=== PATIENT | male | born 1955 | race Caucasian/White ===

== ENCOUNTER 2017-11-16 09:56 | Inpatient (IN) | payer OTHER ==
[~2017-11-16] VITALS: Ht 177.8 cm; Wt 114.0 kg
[~2017-11-16 09:56] MED LIST: ASPIRIN81 M2 PO; CENTRUM SILVER1 EAC3 PO; CLONIDINE HCL0.1 MG PO; COUMADIN5 MG PO; COUMADIN7.5 MG PO; IRON325 MG PO; K-DUR10 MEQ PO; KLOR-CON 1010 ME1 PO; MEDROL DOSEPAK4 MG PO; METOPROLOL SUCC50 MG PO; MICROZIDE12.5 M1 PO; OMEPRAZOLE20 M2 PO; OXYCODONE HCL10 MG PO; OXYCONTIN30 MG PO; PERCOCET 5/31 TABLET PO; PLAVIX75 MG PO; SIMVASTATIN20 MG PO; SKELAXIN800 MG PO; TRAZODONE HCL50 MG PO; VALIUM10 MG PO; ZOCOR20 MG PO; ZOFRAN ODT4 MG PO
[2017-11-16 10:29] LABS: HEMATOCRIT 41.1 % (38.0-50.0); MCH 29.2 PG (29.0-34.0); MCHC 31.6 G/DL (30.0-36.0); MCV 92.4 FL (86-99); PLATELET COUNT 205 K/uL (156-360); RBC DIS.WIDTH-CV 16.9 % (11.8-14.6); RBC DIS.WIDTH-SD 56.9 % (39-53); RED BLOOD COUNT 4.45 M/uL (4.00-5.50); WHITE BLOOD COUNT 8.4 K/uL (4.1-10.2)
[2017-11-16 10:34] LABS: INTER. NORMALIZED RATIO 1.3
[2017-11-16 10:36] LABS: PTT 29.2 SEC (25-37)
[2017-11-16 10:40] LABS: CHLORIDE 103 mEq/L (99-109); POTASSIUM 3.5 mEq/L (3.7-5.4); SODIUM 139 mEq/L (136-147)
[2017-11-16 10:42] LABS: GLUCOSE 136 mg/dL (70-99)
[2017-11-16 10:46] LABS: CREATININE 1.7 mg/dL (0.6-1.3); GFR ESTIMATE (CALCULATED) 44 mL/min/ (58.99-99999)
[2017-11-16 10:47] LABS: UREA NITROGEN (BUN) 20 mg/dL (9-23)
[2017-11-16 10:50] LABS: TROP-I INTERPRETATION NEGATIVE; TROPONIN-I 0.09 ng/mL (0.0-0.30)
[2017-11-16] MEDS ORDERED: DULOXETINE HCL30 MG PO (13:11)
[2017-11-16] MEDS ORDERED: ADVIL,NUPRIN,M200 MG PO (13:14)
[2017-11-16 14:45] VITALS: BP 156/101
[2017-11-16 15:26] LABS: THYROTROPIN (TSH) 3.6 MIU/L (0.4-5.5)
[2017-11-16 16:52] LABS: TROP-I INTERPRETATION NEGATIVE; TROPONIN-I 0.09 ng/mL (0.0-0.30)
[2017-11-16 19:15] VITALS: BP 118/68
[2017-11-16 22:08] LABS: TROP-I INTERPRETATION NEGATIVE; TROPONIN-I 0.08 ng/mL (0.0-0.30)
[2017-11-17 00:10] VITALS: BP 122/85
[2017-11-17 03:23] VITALS: BP 122/74
[2017-11-17 06:31] LABS: HEMATOCRIT 41.7 % (38.0-50.0); HEMOGLOBIN 13.1 G/DL (12.5-16.6); MCH 29.5 PG (29.0-34.0); MCHC 31.4 G/DL (30.0-36.0); MCV 93.9 FL (86-99); PLATELET COUNT 202 K/uL (156-360); RBC DIS.WIDTH-SD 57.6 % (39-53); RED BLOOD COUNT 4.44 M/uL (4.00-5.50); WHITE BLOOD COUNT 5.9 K/uL (4.1-10.2)
[2017-11-17 07:10] VITALS: BP 121/98
[2017-11-17 12:00] VITALS: BP 118/85
[2017-11-17 14:02] LABS: CHLORIDE 99 MEQ/L (99-109); CREATININE 2.1 MG/DL (0.6-1.3); GFR ESTIMATE (CALCULATED) 34 mL/min/ (58.99-99999); SODIUM 133 MEQ/L (136-147); UREA NITROGEN (BUN) 29 mg/dL (9-23)
[2017-11-17 14:07] LABS: GLUCOSE 227 mg/dL (70-99); POTASSIUM 4.5 MEQ/L (3.7-5.4)
[2017-11-17 15:26] VITALS: BP 133/95
[2017-11-17 19:10] VITALS: BP 145/110
[2017-11-18] VITALS (12 sets, daily range): BP systolic 123–146; BP diastolic 66–106
[2017-11-18 05:37] LABS: BASOPHIL (%) 0.1 % (0-1); EOSINOPHIL (%) 0 % (0-5); HEMATOCRIT 40.1 % (38.0-50.0); HEMOGLOBIN 12.5 G/DL (12.5-16.6); IMMATURE GRANULOCYTE (%) 0.5 % (0.0-0.7); LYMPHOCYTE (%) 5.5 % (15-42); LYMPHOCYTE COUNT 0.8 K/uL (1.0-2.8); MCH 29.3 PG (29.0-34.0); MCHC 31.2 G/DL (30.0-36.0); MCV 94.1 FL (86-99); MONOCYTE (%) 5.4 % (3-12); MONOCYTE COUNT 0.8 K/uL (0-0.8); NEUTROPHIL (%) 88.5 % (45-76); PLATELET COUNT 244 K/uL (156-360); RED BLOOD COUNT 4.26 M/uL (4.00-5.50); WHITE BLOOD COUNT 14.7 K/uL (4.1-10.2)
[2017-11-18 05:58] LABS: CHLORIDE 98 MEQ/L (99-109); CREATININE 2.3 MG/DL (0.6-1.3); GFR ESTIMATE (CALCULATED) 31 mL/min/ (58.99-99999); GLUCOSE 176 mg/dL (70-99); POTASSIUM 5.3 MEQ/L (3.7-5.4); SODIUM 133 MEQ/L (136-147); UREA NITROGEN (BUN) 39 mg/dL (9-23)
[2017-11-18 08:38] LABS: ALKALINE PHOSPHATASE 156 IU/L (3-129); ALT (GPT) 28 IU/L (3-49); AST (GOT) 35 IU/L (2-34); DIRECT BILIRUBIN 0.4 mg/dL (0.0-0.3); TOTAL BILIRUBIN 0.9 MG/DL (0.0-1.0)
[2017-11-18 08:48] LABS: HDL CHOLESTEROL 23 MG/DL (Desirable>=40); LDL CHOLESTEROL 88 mg/dL (Desirable<100); NON-HDL CHOLESTEROL 114 mg/dL (Desirable<160); TOTAL CHOLESTEROL 137 mg/dL (Desirable<200); TRIGLYCERIDES 131 MG/DL (Normal: <150)
[2017-11-18 21:17] LABS: CARBON DIOXIDE (BICARBONATE) 30.3 MEQ/L (20-31)
[2017-11-18 21:51] LABS: BASE EXCESS -1.8 mEq/L (-3 to +3); BICARBONATE 23.7 mEq/L (22-26); CARBOXY HGB 2.5 % (0-5); COMMENTS - BLOOD GASES A+C+; FI02 21 %; METHEMOGLOBIN 1.3 % (0-1.5); PCO2 42 mm Hg (35-45); PO2 79 mm Hg (80-100); SITE RR; pH 7.36 (7.35-7.45)
[2017-11-19] VITALS (13 sets, daily range): BP systolic 0–190; BP diastolic 0–139
[2017-11-19 02:40] LABS: BASOPHIL (%) 0.1 % (0-1); EOSINOPHIL (%) 0 % (0-5); HEMATOCRIT 42.8 % (38.0-50.0); HEMOGLOBIN 13.3 G/DL (12.5-16.6); IMMATURE GRANULOCYTE (%) 0.4 % (0.0-0.7); LYMPHOCYTE (%) 7.1 % (15-42); LYMPHOCYTE COUNT 0.9 K/uL (1.0-2.8); MCH 29.2 PG (29.0-34.0); MCHC 31.1 G/DL (30.0-36.0); MCV 94.1 FL (86-99); MONOCYTE COUNT 0.8 K/uL (0-0.8); NEUTROPHIL (%) 86.4 % (45-76); NEUTROPHIL COUNT 11.1 K/uL (1.8-6.4); PLATELET COUNT 275 K/uL (156-360); RBC DIS.WIDTH-CV 16.8 % (11.8-14.6); RBC DIS.WIDTH-SD 57.7 % (39-53); RED BLOOD COUNT 4.55 M/uL (4.00-5.50); WHITE BLOOD COUNT 12.9 K/uL (4.1-10.2)
[2017-11-19 02:55] LABS: ALBUMIN 4.2 g/dL (3.2-4.8)
[2017-11-19 02:56] LABS: CHLORIDE 95 mEq/L (99-109); POTASSIUM 5.4 mEq/L (3.7-5.4); SODIUM 130 mEq/L (136-147)
[2017-11-19 02:58] LABS: GLUCOSE 171 mg/dL (70-99); TOTAL PROTEIN 7.7 g/dL (6.4-8.3)
[2017-11-19 03:01] LABS: ALKALINE PHOSPHATASE 172 IU/L (3-129)
[2017-11-19 03:02] LABS: CREATININE 2.6 mg/dL (0.6-1.3); GFR ESTIMATE (CALCULATED) 27 mL/min/ (58.99-99999)
[2017-11-19 03:03] LABS: AST (GOT) 35 IU/L (2-34); UREA NITROGEN (BUN) 47 mg/dL (9-23)
[2017-11-19 03:05] LABS: ALT (GPT) 33 IU/L (3-49)
[2017-11-19 07:11] LABS: APPEARANCE SL.HAZY ((CLEAR)); BILIRUBIN NEGATIVE; BLOOD NEGATIVE; COLOR YELLOW ((YELLOW)); GLUCOSE (STRIP) NEGATIVE; KETONES NEGATIVE; LEUKOCYTES NEGATIVE; NITRITE NEGATIVE; PROTEIN (STRIP) 30; SPECIFIC GRAVITY 1.019 (1.000-1.030)
[2017-11-19 07:22] LABS: BACTERIA RARE /HPF; EPITHELIAL CELLS RARE /HPF; HYALINE CASTS TNTC /LPF; MUCUS TRACE /LPF; RED BLOOD CELLS 0-5 /HPF (0-5); UCUL ADDED? NO; WHITE BLOOD CELLS 0-5 /HPF (0-5)
[2017-11-19 17:30] LABS: BASE EXCESS -2.6 mEq/L (-3 to +3); CARBOXY HGB 2.5 % (0-5); PO2 89 mm Hg (80-100)
[2017-11-19 17:31] LABS: PCO2 69 mm Hg (35-45); SITE RR +A
[2017-11-19 17:32] LABS: COMMENTS - BLOOD GASES +C; DEVICE NC; O2 FLOW 2 L/MIN; TOTAL RESP RATE 18 resp/min
[2017-11-19 18:18] LABS: HEMATOCRIT 41.1 % (38.0-50.0); HEMOGLOBIN 12.7 G/DL (12.5-16.6); MCH 28.9 PG (29.0-34.0); MCHC 30.9 G/DL (30.0-36.0); MCV 93.6 FL (86-99); NRBC (%) 0.1 /100 WBC (0-0); PLATELET COUNT 275 K/uL (156-360); RBC DIS.WIDTH-CV 16.5 % (11.8-14.6); RBC DIS.WIDTH-SD 57.1 % (39-53); RED BLOOD COUNT 4.39 M/uL (4.00-5.50); WHITE BLOOD COUNT 13.4 K/uL (4.1-10.2)
[2017-11-19 18:33] LABS: TROP-I INTERPRETATION NEGATIVE; TROPONIN-I 0.06 ng/mL (0.0-0.30)
[2017-11-19 18:46] LABS: CHLORIDE 94 MEQ/L (99-109); POTASSIUM 5.1 MEQ/L (3.7-5.4); SODIUM 129 MEQ/L (136-147)
[2017-11-19 18:51] LABS: CREATININE 2.3 MG/DL (0.6-1.3); GFR ESTIMATE (CALCULATED) 31 mL/min/ (58.99-99999); GLUCOSE 200 mg/dL (70-99); UREA NITROGEN (BUN) 55 mg/dL (9-23)
[2017-11-19 20:00] LABS: BASE EXCESS -0.4 mEq/L (-3 to +3); BICARBONATE 25.4 mEq/L (22-26); CARBOXY HGB 2.3 % (0-5); METHEMOGLOBIN 1.4 % (0-1.5); PO2 96 mm Hg (80-100)
[2017-11-19 20:01] LABS: COMMENTS - BLOOD GASES C+; DEVICE BIPAP 14/10; O2 FLOW 2 L/MIN; PCO2 45 mm Hg (35-45); SITE RR; TOTAL RESP RATE 12 resp/min; pH 7.36 (7.35-7.45)
[2017-11-20] VITALS (26 sets, daily range): BP systolic 0–191; BP diastolic 0–139
[2017-11-20 01:08] LABS: TROP-I INTERPRETATION NEGATIVE; TROPONIN-I 0.06 ng/mL (0.0-0.30)
[2017-11-20 04:56] LABS: BASOPHIL (%) 0 % (0-1); EOSINOPHIL (%) 0 % (0-5); HEMATOCRIT 39.2 % (38.0-50.0); HEMOGLOBIN 12.5 G/DL (12.5-16.6); IMMATURE GRANULOCYTE (%) 0.5 % (0.0-0.7); LYMPHOCYTE (%) 7.8 % (15-42); LYMPHOCYTE COUNT 0.8 K/uL (1.0-2.8); MCH 29.4 PG (29.0-34.0); MCHC 31.9 G/DL (30.0-36.0); MCV 92.2 FL (86-99); MONOCYTE (%) 8.8 % (3-12); MONOCYTE COUNT 0.9 K/uL (0-0.8); NEUTROPHIL (%) 82.9 % (45-76); NEUTROPHIL COUNT 8.5 K/uL (1.8-6.4); PLATELET COUNT 234 K/uL (156-360); RBC DIS.WIDTH-CV 16.6 % (11.8-14.6); RBC DIS.WIDTH-SD 55.7 % (39-53); RED BLOOD COUNT 4.25 M/uL (4.00-5.50); WHITE BLOOD COUNT 10.3 K/uL (4.1-10.2)
[2017-11-20 04:59] LABS: ALBUMIN 3.7 g/dL (3.2-4.8); CHLORIDE 95 mEq/L (99-109); SODIUM 129 mEq/L (136-147)
[2017-11-20 05:01] LABS: GLUCOSE 200 mg/dL (70-99)
[2017-11-20 05:05] LABS: ALKALINE PHOSPHATASE 143 IU/L (3-129); CREATININE 2.2 mg/dL (0.6-1.3); GFR ESTIMATE (CALCULATED) 32 mL/min/ (58.99-99999)
[2017-11-20 05:06] LABS: UREA NITROGEN (BUN) 55 mg/dL (9-23)
[2017-11-20 05:07] LABS: AST (GOT) 28 IU/L (2-34)
[2017-11-20 05:08] LABS: ALT (GPT) 28 IU/L (3-49)
[2017-11-20 05:40] LABS: TROP-I INTERPRETATION NEGATIVE; TROPONIN-I 0.07 ng/mL (0.0-0.30)
[2017-11-20 22:01] LABS: UR CREATININE CONCENTRATION 106.2 MG/DL
[2017-11-21] VITALS (19 sets, daily range): BP systolic 130–186; BP diastolic 63–105
[2017-11-21 04:28] LABS: HEMATOCRIT 35.6 % (38.0-50.0); HEMOGLOBIN 11.5 G/DL (12.5-16.6); MCH 29.1 PG (29.0-34.0); MCHC 32.3 G/DL (30.0-36.0); MCV 90.1 FL (86-99); PLATELET COUNT 191 K/uL (156-360); RBC DIS.WIDTH-CV 16.2 % (11.8-14.6); RBC DIS.WIDTH-SD 53.2 % (39-53); RED BLOOD COUNT 3.95 M/uL (4.00-5.50)
[2017-11-21 04:50] LABS: ALBUMIN 3.4 g/dL (3.2-4.8)
[2017-11-21 04:51] LABS: CHLORIDE 98 mEq/L (99-109); POTASSIUM 4.4 mEq/L (3.7-5.4); SODIUM 131 mEq/L (136-147)
[2017-11-21 04:52] LABS: GLUCOSE 187 mg/dL (70-99)
[2017-11-21 04:56] LABS: CREATININE 2.1 mg/dL (0.6-1.3); GFR ESTIMATE (CALCULATED) 34 mL/min/ (58.99-99999); PHOSPHORUS 3.3 mg/dL (2.5-4.9)
[2017-11-21 04:57] LABS: UREA NITROGEN (BUN) 66 mg/dL (9-23)
[2017-11-22] VITALS (14 sets, daily range): BP systolic 147–191; BP diastolic 71–93
[2017-11-22 05:03] LABS: ALBUMIN 3.4 g/dL (3.2-4.8)
[2017-11-22 05:04] LABS: CHLORIDE 98 mEq/L (99-109); POTASSIUM 4.1 mEq/L (3.7-5.4); SODIUM 136 mEq/L (136-147)
[2017-11-22 05:06] LABS: GLUCOSE 176 mg/dL (70-99)
[2017-11-22 05:09] LABS: GFR ESTIMATE (CALCULATED) 47 mL/min/ (58.99-99999); PHOSPHORUS 2.7 mg/dL (2.5-4.9)
[2017-11-22 05:10] LABS: UREA NITROGEN (BUN) 54 mg/dL (9-23)
[2017-11-22 05:12] LABS: CREATININE 1.6 mg/dL (0.6-1.3)
[2017-11-23 01:16] VITALS: BP 181/87
[2017-11-23 03:15] VITALS: BP 162/88
[2017-11-23 05:57] LABS: BASOPHIL (%) 0.1 % (0-1); EOSINOPHIL (%) 0.1 % (0-5); HEMATOCRIT 37.5 % (38.0-50.0); IMMATURE GRANULOCYTE (%) 0.3 % (0.0-0.7); LYMPHOCYTE (%) 11.5 % (15-42); LYMPHOCYTE COUNT 1.1 K/uL (1.0-2.8); MCH 28.7 PG (29.0-34.0); MCV 89.7 FL (86-99); MONOCYTE (%) 9.7 % (3-12); NEUTROPHIL (%) 78.3 % (45-76); NEUTROPHIL COUNT 7.7 K/uL (1.8-6.4); PLATELET COUNT 211 K/uL (156-360); RBC DIS.WIDTH-CV 17.1 % (11.8-14.6); RBC DIS.WIDTH-SD 56.1 % (39-53); RED BLOOD COUNT 4.18 M/uL (4.00-5.50); WHITE BLOOD COUNT 9.9 K/uL (4.1-10.2)
[2017-11-23 06:26] LABS: CHLORIDE 99 MEQ/L (99-109); CREATININE 1.3 MG/DL (0.6-1.3); GFR ESTIMATE (CALCULATED) > 59 mL/min/ (58.99-99999); GLUCOSE 179 mg/dL (70-99); POTASSIUM 4.2 MEQ/L (3.7-5.4); SODIUM 140 MEQ/L (136-147); UREA NITROGEN (BUN) 45 mg/dL (9-23)
[2017-11-23 07:09] VITALS: BP 180/96
[2017-11-23 10:09] VITALS: BP 160/80
[2017-11-23 12:34] VITALS: BP 138/76
[2017-11-23] MEDS ORDERED: PREDNISONE20 MG PO (12:38)
[2017-11-23] MEDS ORDERED: VALSARTAN160 MG PO (12:38)
[2017-11-23] MEDS ORDERED: ADVAIR HFA120 INHALA IH (12:38)
[2017-11-23] MEDS ORDERED: HYDROCHLOROTHIA25 MG PO (12:38)
[2017-11-23] MEDS ORDERED: FAMOTIDINE20 MG PO (12:38)
[2017-11-23] MEDS ORDERED: CORDARONE200 MG PO (12:38)
[2017-11-23] MEDS ORDERED: APRESOLINE50 MG PO (12:38)
[2017-11-23] MEDS ORDERED: ATORVASTATIN CA40 MG PO (12:38)
[2017-11-23] MEDS ORDERED: XARELTO15 MG PO (12:38)
[2017-11-23] MEDS ORDERED: FUROSEMIDE40 MG PO (12:48)
[2017-11-23] MEDS ORDERED: CARVEDILOL3.125 MG PO (14:35)
== END 2017-11-23 14:52 | disposition home or self-care (01) | DRG 308 ==
LOC: EME 09:56 → 4EAST 12:43 → EDOF 12:43 → 4WEST 12:43 → ENRESERV 12:45 → 4EAST 14:35 → ENRESERV 11-19 17:19 → 4WEST 11-19 18:09 → ENRESERV 11-22 07:38 → 4EAST 11-22 12:57 → ENPENDDIS 11-23 → 4EAST 11-23 14:52
PROVIDERS: Emergency Medicine; Hospitalist; Internal Medicine; Internal Medicine Cardiovascular Disease; Internal Medicine Critical Care Medicine; Student in an Organized Health Care Education/Training Program
PROC: 5A09357 Assistance with Respiratory Ventilation, Less than 24 Consecutive Hours, Continuous Positive Airway Pressure (ICD-10-PCS; 2017-11-19)
PROC: 5A2204Z Restoration of Cardiac Rhythm, Single (ICD-10-PCS; principal; 2017-11-20)
DX: I48.4 Atypical atrial flutter (principal); R57.0 Cardiogenic shock; N17.9 Acute kidney failure, unspecified; J96.21 Acute and chronic respiratory failure with hypoxia; J44.1 Chronic obstructive pulmonary disease with (acute) exacerbation; E87.1 Hypo-osmolality and hyponatremia; E87.2 Acidosis; I27.29 Other secondary pulmonary hypertension; I27.81 Cor pulmonale (chronic); I42.9 Cardiomyopathy, unspecified; I47.1 Supraventricular tachycardia; I48.1 Persistent atrial fibrillation; G47.33 Obstructive sleep apnea (adult) (pediatric); E87.6 Hypokalemia; I13.0 Hypertensive heart and chronic kidney disease with heart failure and stage 1 through stage 4 chronic kidney disease, or unspecified chronic kidney disease; I50.23 Acute on chronic systolic (congestive) heart failure; E11.22 Type 2 diabetes mellitus with diabetic chronic kidney disease; E11.51 Type 2 diabetes mellitus with diabetic peripheral angiopathy without gangrene; N18.3 Chronic kidney disease, stage 3 (moderate); E55.9 Vitamin D deficiency, unspecified; E66.9 Obesity, unspecified; E78.5 Hyperlipidemia, unspecified; G89.29 Other chronic pain; M54.9 Dorsalgia, unspecified; I08.2 Rheumatic disorders of both aortic and tricuspid valves; I25.10 Atherosclerotic heart disease of native coronary artery without angina pectoris; F17.210 Nicotine dependence, cigarettes, uncomplicated; Z96.641 Presence of right artificial hip joint; Z68.36 Body mass index [BMI] 36.0-36.9, adult; Z86.73 Personal history of transient ischemic attack (TIA), and cerebral infarction without residual deficits; Z23 Encounter for immunization; Z79.82 Long term (current) use of aspirin; Z79.02 Long term (current) use of antithrombotics/antiplatelets; Z95.1 Presence of aortocoronary bypass graft; Z90.49 Acquired absence of other specified parts of digestive tract; Z86.718 Personal history of other venous thrombosis and embolism; Z91.14 Patient's other noncompliance with medication regimen; Z95.828 Presence of other vascular implants and grafts; Z91.19 Patient's noncompliance with other medical treatment and regimen
CPT/HCPCS: 36600; 71010; 71250; 76770; 80048; 80048 91; 80053; 80061; 80069; 80076; 81003; 82306; 82570; 82803; 82948; 83605; 83880; 84156; 84443; 84484; 85025; 85027; 85610; 85730; 87040; 87502; 87641; 90686; 93005; 93306; 93312; 93971; 94640; 94640 76; 94660; 94799; 99202; 99281; 99285; J0153; J0295; J0360; J1160; J1940; J2920; J7050; J7512

== ENCOUNTER 2017-12-11 09:58 | Inpatient (IN) | payer OTHER ==
[~2017-12-11] VITALS: Ht 177.8 cm; Wt 98.6 kg
[~2017-12-11 09:58] MED LIST changes: +ADVAIR HFA120 INHALA IH; +ADVIL,NUPRIN,M200 MG PO; +APRESOLINE50 MG PO; +ATORVASTATIN CA40 MG PO; +CARVEDILOL3.125 MG PO; +CORDARONE200 MG PO; +DULOXETINE HCL30 MG PO; +FAMOTIDINE20 MG PO; +FUROSEMIDE40 MG PO; +HYDROCHLOROTHIA25 MG PO; +PREDNISONE20 MG PO; +VALSARTAN160 MG PO; +XARELTO15 MG PO
[2017-12-11 10:39] LABS: HEMATOCRIT 44.5 % (38.0-50.0); HEMOGLOBIN 14.6 G/DL (12.5-16.6); MCH 29.4 PG (29.0-34.0); MCHC 32.8 G/DL (30.0-36.0); MCV 89.5 FL (86-99); PLATELET COUNT 423 K/uL (156-360); RBC DIS.WIDTH-CV 14.7 % (11.8-14.6); RBC DIS.WIDTH-SD 48.3 % (39-53); RED BLOOD COUNT 4.97 M/uL (4.00-5.50); WHITE BLOOD COUNT 7.2 K/uL (4.1-10.2)
[2017-12-11 10:44] LABS: ALBUMIN 3.7 g/dL (3.2-4.8); CHLORIDE 90 mEq/L (99-109); POTASSIUM 5.1 mEq/L (3.7-5.4); SODIUM 132 mEq/L (136-147)
[2017-12-11 10:47] LABS: GLUCOSE 211 mg/dL (70-99); TOTAL PROTEIN 7.5 g/dL (6.4-8.3)
[2017-12-11 10:50] LABS: ALKALINE PHOSPHATASE 188 IU/L (3-129); CREATININE 2.4 mg/dL (0.6-1.3); GFR ESTIMATE (CALCULATED) 29 mL/min/ (58.99-99999)
[2017-12-11 10:51] LABS: UREA NITROGEN (BUN) 48 mg/dL (9-23)
[2017-12-11 10:52] LABS: AST (GOT) 37 IU/L (2-34)
[2017-12-11 10:53] LABS: ALT (GPT) 49 IU/L (3-49)
[2017-12-11 10:54] LABS: TROP-I INTERPRETATION NEGATIVE; TROPONIN-I 0.03 ng/mL (0.0-0.30)
[2017-12-11] MEDS ORDERED: PROAIR HFA8.5 GM IH (13:30)
[2017-12-11] MEDS ORDERED: TYLENOL EXTRA500 MG PO (13:30)
[2017-12-11 14:15] LABS: MAGNESIUM 1.8 mg/dL (1.3-2.7)
[2017-12-11 17:49] LABS: TROP-I INTERPRETATION NEGATIVE; TROPONIN-I 0.04 ng/mL (0.0-0.30)
[2017-12-11 18:03] VITALS: BP 113/67
[2017-12-11 21:00] VITALS: BP 103/59
[2017-12-11 23:25] LABS: TROP-I INTERPRETATION NEGATIVE; TROPONIN-I 0.06 ng/mL (0.0-0.30)
[2017-12-11 23:49] VITALS: BP 103/67
[2017-12-12] VITALS (7 sets, daily range): BP systolic 81–137; BP diastolic 50–91
[2017-12-12 06:31] LABS: HEMATOCRIT 40.5 % (38.0-50.0); HEMOGLOBIN 12.8 G/DL (12.5-16.6); MCH 28.4 PG (29.0-34.0); MCHC 31.6 G/DL (30.0-36.0); MCV 89.8 FL (86-99); PLATELET COUNT 355 K/uL (156-360); RBC DIS.WIDTH-CV 14.9 % (11.8-14.6); RBC DIS.WIDTH-SD 49.4 % (39-53); RED BLOOD COUNT 4.51 M/uL (4.00-5.50); WHITE BLOOD COUNT 9.3 K/uL (4.1-10.2)
[2017-12-12 07:22] LABS: ALBUMIN 3.5 G/DL (3.2-4.8); ALKALINE PHOSPHATASE 163 IU/L (3-129); ALT (GPT) 34 IU/L (3-49); AST (GOT) 28 IU/L (2-34); CHLORIDE 95 MEQ/L (99-109); GLUCOSE 130 mg/dL (70-99); POTASSIUM 5.3 MEQ/L (3.7-5.4); SODIUM 136 MEQ/L (136-147); TOTAL PROTEIN 6.6 G/DL (6.4-8.3); UREA NITROGEN (BUN) 38 mg/dL (9-23)
[2017-12-12 07:46] LABS: CREATININE 1.7 MG/DL (0.6-1.3)
[2017-12-12 07:47] LABS: GFR ESTIMATE (CALCULATED) 44 mL/min/ (58.99-99999); TOTAL BILIRUBIN 0.6 MG/DL (0.0-1.0)
[2017-12-13 04:27] VITALS: BP 125/72
[2017-12-13 08:57] VITALS: BP 143/85
[2017-12-13 11:16] LABS: CHLORIDE 94 MEQ/L (99-109); POTASSIUM 4.4 MEQ/L (3.7-5.4); SODIUM 131 MEQ/L (136-147)
[2017-12-13 11:22] LABS: CREATININE 1.4 MG/DL (0.6-1.3); GFR ESTIMATE (CALCULATED) 55 mL/min/ (58.99-99999); GLUCOSE 195 mg/dL (70-99); UREA NITROGEN (BUN) 31 mg/dL (9-23)
[2017-12-13] MEDS ORDERED: XARELTO20 MG PO (12:02)
[2017-12-13 12:11] VITALS: BP 139/64
[2017-12-13 16:27] VITALS: BP 118/56
[2017-12-13 20:45] VITALS: BP 150/77
[2017-12-13 22:54] VITALS: BP 127/70
[2017-12-14 03:57] VITALS: BP 172/77
[2017-12-14 06:16] LABS: CHLORIDE 98 MEQ/L (99-109); CREATININE 1.4 MG/DL (0.6-1.3); GFR ESTIMATE (CALCULATED) 55 mL/min/ (58.99-99999); GLUCOSE 122 mg/dL (70-99); POTASSIUM 4.7 MEQ/L (3.7-5.4); SODIUM 136 MEQ/L (136-147); UREA NITROGEN (BUN) 26 mg/dL (9-23)
[2017-12-14 07:55] VITALS: BP 153/107
[2017-12-14] MEDS ORDERED: CARVEDILOL3.125 MG PO (11:11)
[2017-12-14] MEDS ORDERED: APRESOLINE25 MG PO (11:11)
[2017-12-14] MEDS ORDERED: ADVAIR HFA120 INHALA IH (11:12)
[2017-12-14] MEDS ORDERED: FUROSEMIDE40 MG PO (11:13)
== END 2017-12-14 12:20 | disposition home or self-care (01) | DRG 309 ==
LOC: EME 09:58 → EDOF 13:39 → 4EAST 13:39 → ENRESERV 13:40 → 4EAST 17:55 → 4SOUTH 12-13 22:33
PROVIDERS: Emergency Medicine Emergency Medical Services; Hospitalist; Internal Medicine; Internal Medicine Cardiovascular Disease
PROC: 5A2204Z Restoration of Cardiac Rhythm, Single (ICD-10-PCS; principal; 2017-12-12)
DX: I48.2 Chronic atrial fibrillation (principal); I50.20 Unspecified systolic (congestive) heart failure; I48.92 Unspecified atrial flutter; E87.1 Hypo-osmolality and hyponatremia; I13.0 Hypertensive heart and chronic kidney disease with heart failure and stage 1 through stage 4 chronic kidney disease, or unspecified chronic kidney disease; I42.9 Cardiomyopathy, unspecified; N17.9 Acute kidney failure, unspecified; N18.3 Chronic kidney disease, stage 3 (moderate); E11.22 Type 2 diabetes mellitus with diabetic chronic kidney disease; I95.9 Hypotension, unspecified; E86.0 Dehydration; G47.33 Obstructive sleep apnea (adult) (pediatric); I25.10 Atherosclerotic heart disease of native coronary artery without angina pectoris; J44.9 Chronic obstructive pulmonary disease, unspecified; I50.22 Chronic systolic (congestive) heart failure; R55 Syncope and collapse; R00.2 Palpitations; Z74.01 Bed confinement status; Z79.4 Long term (current) use of insulin; Z95.1 Presence of aortocoronary bypass graft; Z88.8 Allergy status to other drugs, medicaments and biological substances; F17.210 Nicotine dependence, cigarettes, uncomplicated; Z79.01 Long term (current) use of anticoagulants; Z86.73 Personal history of transient ischemic attack (TIA), and cerebral infarction without residual deficits
CPT/HCPCS: 71045; 80048; 80053; 82948; 83735; 83880; 84484; 85027; 93005; 94640; 94640 76; 99202; 99281; 99285; J0153; J7040; J7050